=== PATIENT | female | born 1970 | race African-American/Black ===

== ENCOUNTER 2020-10-04 00:56 | Emergency (ER) | payer BC ==
[2020-10-04] MEDS ORDERED: ONDANSETRON 4 MG/2 ML VIAL IVP STA ×2 (01:14→02:48)
[2020-10-04] MEDS ORDERED: MORPHINE 10 MG/ML VIAL IVP STA (01:14)
[2020-10-04] MEDS ORDERED: SODIUM CHLORIDE 0.9% 1,000 ML IV STA ×2 (01:14→02:27)
--- NOTE | 2020-10-04 01:14 | ED Physician Documentation ---
History of Present Illness - Stated complaint Stated Complaint: RT ABD PX/VOMITING - Chief complaint Chief Complaint: Abd Pain - History obtained from History obtained from: Patient - Additonal information Additional information: 50-year-old woman with pmh htn, psh lap band s/p revision (done in [place]), lap cholecystectomy, p/w gradual onset severe 02/15 nonradiating RLQ abd pain that is sharp, stabbing, constant, worse with lying flat, a/w nbnb nausea and vomiting. Last BM 3 days ago was fully formed. denies fever, sick contacts, back pain, urinary sx. Review of Systems Ten Systems: 10 systems reviewed and negative Constitutional: denies: Fever, Chills Cardiac: denies: Chest pain / pressure Respiratory: denies: Dyspnea GI: reports: Abdominal Pain, Nausea, Vomiting. denies: Diarrhea : denies: Dysuria Musculoskeletal: denies: Back pain PD PAST MEDICAL HISTORY - Present Medications Home Medications: Ambulatory Orders Medication Instructions Recorded Confirmed ALPRAZolam [Alprazolam] 0.5 mg PO DAILY 10/04/20 10/04/20 Acetaminophen/Cod 300/30 [Tylenol 1 tab PO TID 10/04/20 10/04/20 #3] Amlodipine Besylate [Norvasc] 5 mg PO DAILY 10/04/20 10/04/20 Atorvastatin [Lipitor] 10 mg PO DAILY 10/04/20 10/04/20 Cyclobenzaprine [Flexeril] 10 mg PO TID 10/04/20 10/04/20 Estradiol [Estrace] 2 mg PO DAILY 10/04/20 10/04/20 Ondansetron [Zuplenz] 4 mg PO BID 10/04/20 10/04/20 Tamsulosin [Flomax] 0.4 mg PO DAILY 14 Days #14 tab 10/04/20 Zolpidem Tartrate [Ambien] 10 mg PO DAILY 10/04/20 10/04/20 buPROPion [Wellbutrin Sr] 150 mg PO DAILY 10/04/20 10/04/20 - Allergies Allergies/Adverse Reactions: Allergies Allergy/AdvReac Type Severity Reaction Status Date / Time Iodinated Contrast Media Allergy Severe Respiratory Verified 10/04/20 01:44 aspirin AdvReac Hives Verified 10/04/20 01:06 Sulfa (Sulfonamide AdvReac Unknown Verified 10/04/20 01:06 Antibiotics) sulfamethoxazole AdvReac Unknown Verified 10/04/20 01:07 [From Bactrim] trimethoprim [From Bactrim] AdvReac Unknown Verified 10/04/20 01:07 PD ED PE NORMAL - Vitals Vital signs reviewed: Yes - General General: Alert and oriented X 3, Well developed/nourished, Other (moderate distress) - HEENT HEENT: Atraumatic, PERRL, EOMI - Neck Neck: Supple, no meningeal sign - Cardiac Cardiac: RRR - Respiratory Respiratory: No respiratory distress, Clear bilaterally - Abdomen Abdomen: Other (RLQ ttp) - Back Back: Other (R CVA discomfort with palpation) - Derm Derm: Normal color - Extremities Extremities: No deformity - Neuro Neuro: Alert and oriented X 3 - Psych Psych: Normal mood, Normal affect Results - Vitals Vitals: Vital Signs - 24 hr 10/04/20 10/04/20 10/04/20 01:04 01:06 02:36 Temperature 36.6 C 36.6 C 36.5 C Heart Rate 89 89 89 Respiratory 18 18 18 Rate Blood Pressure 170/92 H 170/92 H 159/97 H O2 Saturation 100 100 99 Oxygen O2 Source Room air - Labs Labs: Laboratory Tests 10/04/20 10/04/20 01:30 01:30 WBC 13.0 H RBC 4.38 Hgb 12.7 Hct 39.4 MCV 90.0 MCH 29.0 MCHC 32.2 RDW 13.5 Plt Count 336 MPV 10.0 Neut # (Auto) 9.6 H Lymph # (Auto) 2.2 [place] # (Auto) 0.9 Eos # (Auto) 0.2 Baso # (Auto) 0.1 Absolute Nucleated RBC 0.00 Nucleated RBC % 0.0 Sodium 136 Potassium 4.0 Chloride 97 L Carbon Dioxide 26 Anion Gap 13.0 BUN 19 Creatinine 1.1 H Estimated GFR (MDRD) 64 L Glucose 143 H Calcium 9.1 Total Bilirubin 0.4 AST 32 ALT 29 Alkaline Phosphatase 78 Total Protein 8.4 H Albumin 4.8 Globulin 3.6 Albumin/Globulin Ratio 1.3 Lipase 38 PD MEDICAL DECISION MAKING - ED course ED course: 50yF p/w severe abd pain. will eval via ct re: kidney stones vs appendicitis, manage symptomatically. Departure - Departure Clinical Impression: Kidney stone Condition: Good Instructions: Kidney Stones Follow-Up: Stacia Garcia MD [Physician No Access] - Prescriptions: Tamsulosin [Flomax] 0.4 mg PO DAILY 14 Days #14 tab Comments: You were seen seen in the emergency department for a 4mm kidney stone at the end of the ureter (the tube going from the kidney to the bladder). Your kidney function is normal on bloodwork. Your CT scan showed inflammation around the kidney, but your urine did not show signs of infection. You will need to see a urologist when you get home to [place] if your symptoms do not resolve. Return to an emergency department if you experience fevers or have any new or worsening symptoms or other concerns.
[2020-10-04 01:49] LABS: BASOPHILS # (AUTO) 0.1 10^3/uL (0.0-0.1); BASOPHILS % (AUTO) 0.4 %; EOSINOPHILS # (AUTO) 0.2 10^3/uL (0.0-0.7); EOSINOPHILS % (AUTO) 1.5 %; HCT - HEMATOCRIT 39.4 % (37.0-47.0); HGB - HEMOGLOBIN 12.7 g/dL (12.0-16.0); LYMPHOCYTES # (AUTO) 2.2 10^3/uL (1.5-3.5); LYMPHOCYTES % (AUTO) 16.7 %; MEAN CORPUSCULAR HGB CONC 32.2 g/dL (32.0-36.0); MONOCYTES # (AUTO) 0.9 10^3/uL (0.0-1.0); MONOCYTES % (AUTO) 6.7 %; NEUTROPHILS # (AUTO) 9.6 10^3/uL (1.5-6.6); NEUTROPHILS % (AUTO) 74.3 %; PLT - PLATELET COUNT 336 10^3/uL (130-450); RED BLOOD COUNT 4.38 10^6/uL (4.20-5.40); RED CELL DISTRIBUTION WIDTH 13.5 % (12.0-15.0)
[2020-10-04 02:00] LABS: ALBUMIN 4.8 g/dL (3.2-5.5); ALBUMIN/GLOBULIN RATIO 1.3 (1.0-2.2); BILIRUBIN,TOTAL 0.4 mg/dL (0.2-1.0); CALCIUM 9.1 mg/dL (8.5-10.3); CREATININE 1.1 mg/dL (0.4-1.0); TOTAL PROTEIN 8.4 g/dL (6.7-8.2)
[2020-10-04] MEDS ORDERED: oxyCODONE 5 MG TABLET PO STA (02:49)
[2020-10-04] MEDS ORDERED: oxyCODONE/ACET 5/325 Prepack 4 PO STA (03:03)
[2020-10-04 03:14] LABS: BILIRUBIN,URINE NEGATIVE (NEGATIVE); CLARITY,URINE CLEAR (CLEAR); GLUCOSE, URINE (UA) 100 mg/dL (NEGATIVE); KETONES,URINE (UA) NEGATIVE (NEGATIVE); LEUKOCYTE ESTERASE, URINE NEGATIVE (NEGATIVE); NITRITE,URINE NEGATIVE (NEGATIVE); OCCULT BLOOD,URINE SMALL (NEGATIVE); PROTEIN,URINE NEGATIVE (NEGATIVE); UROBILINOGEN,URINE 0.2 (NORMAL) E.U./dL (NORMAL)
[2020-10-04 03:19] LABS: BACTERIA,URINE None Seen /HPF (None Seen); RBC,URINE 0-5 /HPF (0-5); SQUAMOUS EPITHELIAL CELL,UR RARE Squamous (<= Few); WBC,URINE 0-3 /HPF (0-5)
[2020-10-04 03:38] VITALS: BP 152/98
--- NOTE | 2020-10-04 08:42 | CT Report ---
PROCEDURE: Abdomen/Pelvis WO INDICATIONS: abd pain TECHNIQUE: Noncontrast 5 mm thick sections acquired from the diaphragms to the symphysis. 5 mm coronal and sagi ttal reformats were then performed. For radiation dose reduction, the following was used: automated exposure control, adjustment of mA and/or kV according to patient size. COMPARISON: None. FINDINGS: Image quality: Excellent. ABDOMEN: Lung bases: Minimal groundglass opacity can be seen at the lung bases, left worse than right. Heart s ize is normal. Solid organs: Liver and spleen are normal in size. Gallbladder has been removed. Pancreas is fabio l in contours. No adrenal nodules. On the right, there is a 6 mm obstructing stone seen within the ureter distally, as on series 6 image 31. There is associated moderate right-sided hydroureter and hydronephrosis, perinephric fat strandi ng. No nonobstructing kidney stones are seen. The left kidney demonstrates normal size. No left-sided hyd ronephrosis is seen. Peritoneum and bowel: Unenhanced bowel loops demonstrate normal wall thickness and caliber. No free fluid or air. Bariatric surgery can be seen. Nodes and vessels: No retroperitoneal or mesenteric adenopathy by size criteria. Aorta and inferior vena cava are normal in caliber. Miscellaneous: A mild fat-containing periumbilical hernia is seen. PELVIS: Genitourinary: Bladder wall thickness is normal. This patient is status post hysterectomy. No adnex al masses can be seen. Miscellaneous: No inguinal hernias or adenopathy. Bones: No suspicious bony lesions. No vertebral body compression fractures. IMPRESSION: Obstructing stone seen within the distal right ureter, with associated hydronephrosis and hydroureter with perinephric fat standing. No nonobstructing kidney stones are seen. Minimal groundglass opacity can be seen at the lung bases, left worse than right. This is felt most l ikely to be related to atelectasis, although differential diagnosis would also include atypical/viral pneumonia and a mild degree of pulmonary edema. Incidental note is made of: Bariatric surgery Cholecystectomy Fat-containing periumbilical hernia Hysterectomy Note: No significant discrepancy from the preliminary report. Reviewed by: Ney Melgar MD on 10/04/2020 7:40 AM AKDT Approved by: Ney Melgar MD on 10/04/2020 7:40 AM ROWAN Station ID: [id number]
== END 2020-10-04 04:11 | disposition home or self-care (01) ==
LOC: ED 00:56
DX: N13.2 Hydronephrosis with renal and ureteral calculous obstruction (principal); K42.9 Umbilical hernia without obstruction or gangrene; Z98.84 Bariatric surgery status; I10 Essential (primary) hypertension
CPT/HCPCS: 36415; 74176; 80053; 81001; 83690; 85025; 96361; 96374; 96375; 96376; 99284; A9270; 81003; 87086